=== PATIENT | female | born 1945 | race Caucasian/White ===

== ENCOUNTER 2021-11-06 09:06 | Outpatient (CLI) | payer MEDICARE | END 2021-11-06 09:07 | disposition home or self-care (01) | LOC: BICRAD 09:06 | PROVIDERS: ATTEND Specialist | DX: J90 Pleural effusion, not elsewhere classified (principal); D64.9 Anemia, unspecified | CPT/HCPCS: 36415; 71046; 85025 ==

== ENCOUNTER 2021-12-25 11:00 | Outpatient (CLI) | payer MEDICARE | END 2021-12-25 11:01 | disposition home or self-care (01) | LOC: RAD 11:00 | PROVIDERS: ATTEND Internal Medicine | DX: J90 Pleural effusion, not elsewhere classified (principal); J98.11 Atelectasis | CPT/HCPCS: 71046 ==

== ENCOUNTER 2022-01-23 10:45 | Inpatient (IN) | payer MEDICARE ==
[2022-01-23 14:03] VITALS: BMI 22.1
[2022-01-28] MEDS ORDERED: Ketorolac Tromethamine 30 MG/ML VIAL ONE ×2 (08:38→15:30)
[2022-01-28] MEDS ORDERED: Acetaminophen 500 MG TAB ONE (08:38)
[2022-01-28] MEDS ORDERED: Fentanyl 100 MCG/2 ML VIAL ONE ×4 (09:21→15:21)
[2022-01-28] MEDS ORDERED: Midazolam HCl 2 mg/2 ml Vial ONE (09:21)
[2022-01-28] MEDS ORDERED: fentaNYL Citrate/PF 100 MCG/2 ML SYRINGE ONE (09:25)
[2022-01-28] MEDS ORDERED: SUGAMMADEX SODIUM 200 MG/2 ML VIAL ONE (09:25)
[2022-01-28] MEDS ORDERED: cefOXitin 2 GM VIAL ONE ×2 (09:55→12:11)
[2022-01-28] MEDS ORDERED: Sodium Chloride 0.9% 100 ML ONE (09:55)
[2022-01-28] MEDS ORDERED: Ondansetron PF 4 MG/2 ML Vial ONE (10:08)
[2022-01-28] MEDS ORDERED: Glycopyrrolate 0.2 MG/ML 5 ML SYRINGE ONE (10:08)
[2022-01-28] MEDS ORDERED: Bupivacaine HCl 0.5%/Epinephrine 1:200,000/PF 30 ml Vial ONE (10:08)
[2022-01-28] MEDS ORDERED: Lidocaine 1% PF 5 ML VIAL ONE (10:08)
[2022-01-28] MEDS ORDERED: Dexamethasone 20 MG/5 ML VIAL ONE (10:08)
[2022-01-28] MEDS ORDERED: Rocuronium Bromide 10 MG/ML (10ML VIAL) ONE (10:08)
[2022-01-28] MEDS ORDERED: ePHEDrine 50 MG/ML VIAL ONE (10:08)
[2022-01-28] MEDS ORDERED: PROPOFOL 200 MG/20 ML VIAL ONE (10:08)
[2022-01-28] MEDS ORDERED: D5 1/2 NS w/20 mEq KCL 1,000 ML ONE (15:29)
[2022-01-28] MEDS ORDERED: hydrALAZINE 20 MG/ML VIAL SLOW IVP PRN (16:27)
[2022-01-28] MEDS ORDERED: Morphine 4 MG/ML VIAL SLOW IVP PRN (16:27)
[2022-01-28] MEDS: D5 1/2 NS w/20 mEq KCL 1,000 ML IV SCH ×2 (16:47→23:49)
[2022-01-28] MEDS: HYDROcodone/Acetaminophen 7.5/325 mg Tablet PO PRN ×2 (17:46→23:48)
[2022-01-28] MEDS: Atorvastatin Calcium 10 MG TAB PO SCH (20:35)
[2022-01-28] MEDS: Famotidine 20 MG TAB PO SCH (20:35)
[2022-01-28] MEDS: Ketorolac Tromethamine 30 MG/ML VIAL IVP SCH (20:35)
[2022-01-28] MEDS: Ondansetron PF 4 MG/2 ML Vial IVP PRN (23:47)
[2022-01-29] MEDS: Famotidine/PF 20 mg/2ml Vial SLOW IVP SCH ×3 (01:08→21:35)
[2022-01-29] MEDS: Ketorolac Tromethamine 30 MG/ML VIAL IVP SCH ×4 (03:46→21:35)
[2022-01-29] MEDS: D5 1/2 NS w/20 mEq KCL 1,000 ML IV SCH (06:41)
[2022-01-29 07:34] LABS: #Eosinphils 0.1 thou/uL (0.0-0.7); #Lymphocytes 1.9 thou/uL (1.20-3.40); #Neutrophils 10.5 thou/uL (1.40-6.50); %Basophils 0.4 % (0.0-1.0); %Eosinophils 0.4 % (0.0-10.0); %Lymphocytes 13.8 % (21.0-51.0); %Monocytes 7.5 % (0.0-10.0); Hemoglobin 10.9 g/dL (12.0-16.0); Mean Corpuscular HGB CONC 30.7 g/dL (32.0-36.0); Mean Corpuscular Hemoglobin 28.3 pg (27.0-31.0); Mean Corpuscular Volume 92.2 fL (78.0-98.0); Mean Platelet Volume 8.7 fL (7.4-10.4); Platelet Count 215 thou/uL (130-400); Red Blood Cell (RBC) Count 3.85 mill/uL (4.20-5.40); White Blood Cell (WBC) Count 13.5 thou/uL (4.8-10.8)
[2022-01-29 07:48] LABS: Anion Gap 9 mmol/L (10-20); BUN (Urea Nitrogen) 8 mg/dL (9.8-20.1); Calc. Creatinine Clearance 61 mL/min (70-130); Calcium 7.7 mg/dL (7.8-10.44); Carbon Dioxide 20 mmol/L (23-31); Chloride 106 mmol/L (98-107); Glucose 172 mg/dL (83-110); Potassium 4.3 mmol/L (3.5-5.1); Sodium 131 mmol/L (136-145)
[2022-01-29] MEDS: Enoxaparin Sodium 40 MG/0.4 ML SYRINGE SC SCH (08:57)
[2022-01-29] MEDS: Famotidine 20 MG TAB PO SCH ×2 (08:57→21:29)
[2022-01-29] MEDS: D5 0.9% NS w/ 20 mEq KCl 1,000 ML IV SCH ×2 (13:07→21:34)
[2022-01-29] MEDS: Morphine 2 MG/ML VIAL SLOW IVP PRN (15:57)
[2022-01-29] MEDS ORDERED: Lactated Ringer's 1,000 ML IV SCH (18:15)
[2022-01-29] MEDS: Atorvastatin Calcium 10 MG TAB PO SCH (21:34)
[2022-01-30] MEDS: Ketorolac Tromethamine 30 MG/ML VIAL IVP SCH ×4 (02:33→21:02)
[2022-01-30] MEDS: D5 0.9% NS w/ 20 mEq KCl 1,000 ML IV SCH (02:38)
[2022-01-30 08:09] LABS: Anion Gap 10 mmol/L (10-20); BUN (Urea Nitrogen) 4 mg/dL (9.8-20.1); Calc. Creatinine Clearance 75 mL/min (70-130); Calcium 7.3 mg/dL (7.8-10.44); Carbon Dioxide 16 mmol/L (23-31); Chloride 115 mmol/L (98-107); Glucose 102 mg/dL (83-110); Potassium 5.3 mmol/L (3.5-5.1); Sodium 136 mmol/L (136-145)
[2022-01-30 08:19] LABS: #Eosinphils 0.5 thou/uL (0.0-0.7); #Lymphocytes 1.5 thou/uL (1.20-3.40); #Monocytes 0.6 thou/uL (0.11-0.59); #Neutrophils 8.3 thou/uL (1.40-6.50); %Basophils 0.3 % (0.0-1.0); %Eosinophils 4.7 % (0.0-10.0); %Lymphocytes 13.5 % (21.0-51.0); %Monocytes 5.9 % (0.0-10.0); %Neutrophils 75.6 % (42.0-75.0); Mean Corpuscular HGB CONC 31.2 g/dL (32.0-36.0); Mean Corpuscular Hemoglobin 28.8 pg (27.0-31.0); Mean Corpuscular Volume 92.3 fL (78.0-98.0); Mean Platelet Volume 8.8 fL (7.4-10.4); Platelet Count 171 thou/uL (130-400); Red Blood Cell (RBC) Count 3.47 mill/uL (4.20-5.40); White Blood Cell (WBC) Count 10.9 thou/uL (4.8-10.8)
[2022-01-30] MEDS: Enoxaparin Sodium 40 MG/0.4 ML SYRINGE SC SCH (08:57)
[2022-01-30] MEDS: Famotidine 20 MG TAB PO SCH ×2 (08:58→21:26)
[2022-01-30] MEDS: Famotidine/PF 20 mg/2ml Vial SLOW IVP SCH ×2 (08:58→21:02)
[2022-01-30] MEDS: Dextrose 5%-Lactated Ringers 1,000 ML IV SCH ×2 (09:51→18:30)
[2022-01-30] MEDS: Ondansetron PF 4 MG/2 ML Vial IVP PRN ×2 (15:45→21:03)
[2022-01-30] MEDS: Morphine 2 MG/ML VIAL SLOW IVP PRN (18:53)
[2022-01-30] MEDS: Atorvastatin Calcium 10 MG TAB PO SCH (21:02)
[2022-01-31] MEDS: Dextrose 5%-Lactated Ringers 1,000 ML IV SCH ×3 (03:07→15:53)
[2022-01-31] MEDS: Ketorolac Tromethamine 30 MG/ML VIAL IVP SCH ×4 (03:08→20:54)
[2022-01-31 05:46] LABS: Anion Gap 9 mmol/L (10-20); BUN (Urea Nitrogen) Less than 4 mg/dL (9.8-20.1); Calc. Creatinine Clearance 85 mL/min (70-130); Calcium 7.7 mg/dL (7.8-10.44); Carbon Dioxide 20 mmol/L (23-31); Chloride 111 mmol/L (98-107); Glucose 122 mg/dL (83-110); Potassium 3.4 mmol/L (3.5-5.1); Sodium 137 mmol/L (136-145)
[2022-01-31 05:53] LABS: #Eosinphils 0.5 thou/uL (0.0-0.7); #Lymphocytes 1.5 thou/uL (1.20-3.40); #Monocytes 0.6 thou/uL (0.11-0.59); #Neutrophils 7.1 thou/uL (1.40-6.50); %Eosinophils 5.4 % (0.0-10.0); %Lymphocytes 15.6 % (21.0-51.0); %Monocytes 5.9 % (0.0-10.0); Hemoglobin 8.4 g/dL (12.0-16.0); Mean Corpuscular HGB CONC 31.4 g/dL (32.0-36.0); Mean Corpuscular Hemoglobin 28.6 pg (27.0-31.0); Mean Corpuscular Volume 91.1 fL (78.0-98.0); Mean Platelet Volume 9.2 fL (7.4-10.4); Platelet Count 171 thou/uL (130-400); RBC Distribution Width 17.2 % (11.5-14.5); Red Blood Cell (RBC) Count 2.94 mill/uL (4.20-5.40); White Blood Cell (WBC) Count 9.8 thou/uL (4.8-10.8)
[2022-01-31] MEDS: Ondansetron PF 4 MG/2 ML Vial IVP PRN ×2 (06:27→18:57)
[2022-01-31] MEDS: Famotidine 20 MG TAB PO SCH ×2 (09:55→20:54)
[2022-01-31] MEDS: Enoxaparin Sodium 40 MG/0.4 ML SYRINGE SC SCH (09:55)
[2022-01-31] MEDS: Famotidine/PF 20 mg/2ml Vial SLOW IVP SCH ×2 (09:56→20:55)
[2022-01-31] MEDS: Promethazine HCl 25 MG/ML VIAL IM PRN (10:15)
[2022-01-31] MEDS: Morphine 2 MG/ML VIAL SLOW IVP PRN (19:02)
[2022-01-31] MEDS: Atorvastatin Calcium 10 MG TAB PO SCH (20:54)
[2022-02-01] MEDS: Dextrose 5%-Lactated Ringers 1,000 ML IV SCH ×3 (02:00→11:43)
[2022-02-01] MEDS: Ketorolac Tromethamine 30 MG/ML VIAL IVP SCH ×4 (02:57→20:02)
[2022-02-01 08:39] LABS: #Eosinphils 0.7 thou/uL (0.0-0.7); #Lymphocytes 1.6 thou/uL (1.20-3.40); #Monocytes 0.6 thou/uL (0.11-0.59); #Neutrophils 8.2 thou/uL (1.40-6.50); %Basophils 0.2 % (0.0-1.0); %Eosinophils 6.4 % (0.0-10.0); %Lymphocytes 14.5 % (21.0-51.0); %Neutrophils 73.9 % (42.0-75.0); Hemoglobin 10.7 g/dL (12.0-16.0); Mean Corpuscular HGB CONC 30.8 g/dL (32.0-36.0); Mean Corpuscular Hemoglobin 28.4 pg (27.0-31.0); Mean Corpuscular Volume 92.2 fL (78.0-98.0); Mean Platelet Volume 8.5 fL (7.4-10.4); Platelet Count 216 thou/uL (130-400); RBC Distribution Width 16.9 % (11.5-14.5); Red Blood Cell (RBC) Count 3.76 mill/uL (4.20-5.40); White Blood Cell (WBC) Count 11.1 thou/uL (4.8-10.8)
[2022-02-01 08:59] LABS: Anion Gap 12 mmol/L (10-20); BUN (Urea Nitrogen) 4 mg/dL (9.8-20.1); Calc. Creatinine Clearance 80 mL/min (70-130); Calcium 8.4 mg/dL (7.8-10.44); Carbon Dioxide 20 mmol/L (23-31); Chloride 111 mmol/L (98-107); Glucose 105 mg/dL (83-110); Potassium 3.2 mmol/L (3.5-5.1); Sodium 140 mmol/L (136-145)
[2022-02-01] MEDS ORDERED: Piperacillin/Tazobactam 3.375 GM in Sodium Chloride 0.9% 100 ML IVPB SCH ×2 (09:00→12:00)
[2022-02-01] MEDS: Famotidine 20 MG TAB PO SCH ×2 (09:10→20:02)
[2022-02-01] MEDS: Famotidine/PF 20 mg/2ml Vial SLOW IVP SCH ×2 (09:11→20:02)
[2022-02-01] MEDS: Enoxaparin Sodium 30 MG/0.3 ML SYRINGE SC SCH (09:11)
[2022-02-01] MEDS: Piperacillin/Tazobactam 3.375 GM in Sodium Chloride 0.9% 100 ML IVPB SCH ×2 (14:17→22:23)
[2022-02-01] MEDS ORDERED: Morphine 4 MG/ML VIAL SLOW IVP PRN (16:15)
[2022-02-01] MEDS: Ondansetron PF 4 MG/2 ML Vial IVP PRN ×2 (16:51→22:26)
[2022-02-01] MEDS: Atorvastatin Calcium 10 MG TAB PO SCH (20:03)
[2022-02-01] MEDS: Promethazine HCl 25 MG/ML VIAL IM PRN (20:03)
[2022-02-02] MEDS: Ketorolac Tromethamine 30 MG/ML VIAL IVP SCH ×4 (03:00→20:35)
[2022-02-02] MEDS: Piperacillin/Tazobactam 3.375 GM in Sodium Chloride 0.9% 100 ML IVPB SCH ×3 (05:35→22:59)
[2022-02-02 06:15] LABS: #Eosinphils 0.6 thou/uL (0.0-0.7); #Lymphocytes 1.7 thou/uL (1.20-3.40); #Monocytes 0.7 thou/uL (0.11-0.59); #Neutrophils 5.3 thou/uL (1.40-6.50); %Basophils 0.5 % (0.0-1.0); %Eosinophils 7.8 % (0.0-10.0); %Lymphocytes 19.9 % (21.0-51.0); %Monocytes 8.2 % (0.0-10.0); %Neutrophils 63.6 % (42.0-75.0); Hemoglobin 8.5 g/dL (12.0-16.0); Mean Corpuscular HGB CONC 30.9 g/dL (32.0-36.0); Mean Corpuscular Hemoglobin 28.2 pg (27.0-31.0); Mean Corpuscular Volume 91.1 fL (78.0-98.0); Mean Platelet Volume 8.2 fL (7.4-10.4); Platelet Count 208 thou/uL (130-400); RBC Distribution Width 16.7 % (11.5-14.5); Red Blood Cell (RBC) Count 3.01 mill/uL (4.20-5.40); White Blood Cell (WBC) Count 8.3 thou/uL (4.8-10.8)
[2022-02-02 06:36] LABS: Anion Gap 10 mmol/L (10-20); BUN (Urea Nitrogen) Less than 4 mg/dL (9.8-20.1); Calc. Creatinine Clearance 78 mL/min (70-130); Calcium 7.7 mg/dL (7.8-10.44); Carbon Dioxide 23 mmol/L (23-31); Chloride 109 mmol/L (98-107); Glucose 103 mg/dL (83-110); Sodium 139 mmol/L (136-145)
[2022-02-02] MEDS: Promethazine HCl 25 MG/ML VIAL IM PRN ×2 (08:04→20:33)
[2022-02-02] MEDS: Famotidine/PF 20 mg/2ml Vial SLOW IVP SCH ×2 (10:15→20:35)
[2022-02-02] MEDS: Enoxaparin Sodium 30 MG/0.3 ML SYRINGE SC SCH (10:16)
[2022-02-02] MEDS: Famotidine 20 MG TAB PO SCH ×2 (10:21→20:48)
[2022-02-02] MEDS: Potassium Chloride 20 MEQ in Premix Bag 1 BAG IVPB SCH ×2 (11:07→12:29)
[2022-02-02] MEDS: Ondansetron PF 4 MG/2 ML Vial IVP PRN (18:45)
[2022-02-02] MEDS: Atorvastatin Calcium 10 MG TAB PO SCH (23:02)
[2022-02-03] MEDS: Ondansetron PF 4 MG/2 ML Vial IVP PRN ×3 (01:02→22:07)
[2022-02-03] MEDS: Piperacillin/Tazobactam 3.375 GM in Sodium Chloride 0.9% 100 ML IVPB SCH ×3 (05:14→22:08)
[2022-02-03 08:36] LABS: #Basophils 0.1 thou/uL (0.0-0.2); #Eosinphils 0.7 thou/uL (0.0-0.7); #Lymphocytes 2.1 thou/uL (1.20-3.40); #Monocytes 0.7 thou/uL (0.11-0.59); #Neutrophils 5.7 thou/uL (1.40-6.50); %Basophils 0.5 % (0.0-1.0); %Eosinophils 7.5 % (0.0-10.0); %Lymphocytes 22.5 % (21.0-51.0); %Monocytes 7.8 % (0.0-10.0); %Neutrophils 61.6 % (42.0-75.0); Hemoglobin 9.5 g/dL (12.0-16.0); Mean Corpuscular HGB CONC 31.8 g/dL (32.0-36.0); Mean Corpuscular Hemoglobin 28.9 pg (27.0-31.0); Mean Corpuscular Volume 90.9 fL (78.0-98.0); Mean Platelet Volume 8.1 fL (7.4-10.4); Platelet Count 244 thou/uL (130-400); RBC Distribution Width 16.4 % (11.5-14.5); Red Blood Cell (RBC) Count 3.27 mill/uL (4.20-5.40); White Blood Cell (WBC) Count 9.3 thou/uL (4.8-10.8)
[2022-02-03 08:50] LABS: Anion Gap 13 mmol/L (10-20); BUN (Urea Nitrogen) 4 mg/dL (9.8-20.1); Calc. Creatinine Clearance 83 mL/min (70-130); Calcium 8.1 mg/dL (7.8-10.44); Carbon Dioxide 20 mmol/L (23-31); Chloride 106 mmol/L (98-107); Glucose 95 mg/dL (83-110); Potassium 3.4 mmol/L (3.5-5.1); Sodium 136 mmol/L (136-145)
[2022-02-03] MEDS: Enoxaparin Sodium 30 MG/0.3 ML SYRINGE SC SCH (09:03)
[2022-02-03] MEDS: Famotidine/PF 20 mg/2ml Vial SLOW IVP SCH ×2 (09:04→21:03)
[2022-02-03] MEDS: Famotidine 20 MG TAB PO SCH ×2 (09:04→21:02)
[2022-02-03] MEDS: Promethazine HCl 25 MG/ML VIAL IM PRN (13:33)
[2022-02-03] MEDS: Atorvastatin Calcium 10 MG TAB PO SCH (21:02)
[2022-02-04] MEDS: Promethazine HCl 25 MG/ML VIAL IM PRN ×3 (02:17→22:33)
[2022-02-04] MEDS: Piperacillin/Tazobactam 3.375 GM in Sodium Chloride 0.9% 100 ML IVPB SCH (06:35)
[2022-02-04] MEDS: Famotidine 20 MG TAB PO SCH ×2 (08:07→21:04)
[2022-02-04] MEDS: Famotidine/PF 20 mg/2ml Vial SLOW IVP SCH (09:18)
[2022-02-04] MEDS: Enoxaparin Sodium 30 MG/0.3 ML SYRINGE SC SCH (10:41)
[2022-02-04] MEDS: Ondansetron PF 4 MG/2 ML Vial IVP PRN ×2 (12:15→16:19)
[2022-02-04] MEDS: Ciprofloxacin 500 MG TAB PO SCH (21:04)
[2022-02-04] MEDS: Atorvastatin Calcium 10 MG TAB PO SCH (21:04)
[2022-02-05] MEDS: Ciprofloxacin 500 MG TAB PO SCH ×2 (05:19→20:36)
[2022-02-05] MEDS: Famotidine 20 MG TAB PO SCH ×2 (07:43→20:36)
[2022-02-05] MEDS: HYDROcodone/Acetaminophen 7.5/325 mg Tablet PO PRN (09:51)
[2022-02-05] MEDS: Ondansetron PF 4 MG/2 ML Vial IVP PRN (09:54)
[2022-02-05] MEDS ORDERED: Ondansetron ODT 4 MG TAB PO PRN (19:15)
[2022-02-05] MEDS: Atorvastatin Calcium 10 MG TAB PO SCH (20:36)
[2022-02-05] MEDS: Promethazine 25 MG TAB PO PRN (22:15)
[2022-02-06] MEDS: Ciprofloxacin 500 MG TAB PO SCH ×2 (05:14→20:33)
[2022-02-06 08:22] LABS: #Basophils 0.1 thou/uL (0.0-0.2); #Eosinphils 0.5 thou/uL (0.0-0.7); #Lymphocytes 1.9 thou/uL (1.20-3.40); #Monocytes 0.8 thou/uL (0.11-0.59); #Neutrophils 5.6 thou/uL (1.40-6.50); %Basophils 0.6 % (0.0-1.0); %Eosinophils 5.9 % (0.0-10.0); %Lymphocytes 21.3 % (21.0-51.0); %Monocytes 9.1 % (0.0-10.0); %Neutrophils 63.1 % (42.0-75.0); Hemoglobin 9.7 g/dL (12.0-16.0); Mean Corpuscular HGB CONC 30.7 g/dL (32.0-36.0); Mean Corpuscular Hemoglobin 28.1 pg (27.0-31.0); Mean Corpuscular Volume 91.3 fL (78.0-98.0); Mean Platelet Volume 7.4 fL (7.4-10.4); Platelet Count 375 thou/uL (130-400); RBC Distribution Width 16.3 % (11.5-14.5); Red Blood Cell (RBC) Count 3.46 mill/uL (4.20-5.40); White Blood Cell (WBC) Count 8.9 thou/uL (4.8-10.8)
[2022-02-06 08:40] LABS: Anion Gap 13 mmol/L (10-20); BUN (Urea Nitrogen) 5 mg/dL (9.8-20.1); Calc. Creatinine Clearance 33 mL/min (70-130); Calcium 8.3 mg/dL (7.8-10.44); Carbon Dioxide 22 mmol/L (23-31); Chloride 106 mmol/L (98-107); Glucose 110 mg/dL (83-110); Potassium 3.2 mmol/L (3.5-5.1); Sodium 138 mmol/L (136-145)
[2022-02-06] MEDS: Famotidine 20 MG TAB PO SCH (09:00)
[2022-02-06] MEDS: Atorvastatin Calcium 10 MG TAB PO SCH (20:33)
[2022-02-06] MEDS: Promethazine 25 MG TAB PO PRN (23:39)
[2022-02-07] MEDS: Ciprofloxacin 500 MG TAB PO SCH ×2 (05:10→20:44)
[2022-02-07] MEDS: Ibuprofen 200 MG TAB PO PRN ×2 (05:12→21:46)
[2022-02-07 06:33] LABS: #Eosinphils 0.5 thou/uL (0.0-0.7); #Lymphocytes 1.4 thou/uL (1.20-3.40); #Monocytes 0.7 thou/uL (0.11-0.59); #Neutrophils 5.3 thou/uL (1.40-6.50); %Basophils 0.5 % (0.0-1.0); %Eosinophils 5.8 % (0.0-10.0); %Lymphocytes 17.4 % (21.0-51.0); %Monocytes 9.3 % (0.0-10.0); Hemoglobin 9.1 g/dL (12.0-16.0); Mean Corpuscular HGB CONC 31.9 g/dL (32.0-36.0); Mean Corpuscular Hemoglobin 28.8 pg (27.0-31.0); Mean Corpuscular Volume 90.3 fL (78.0-98.0); Mean Platelet Volume 7.5 fL (7.4-10.4); Platelet Count 376 thou/uL (130-400); Red Blood Cell (RBC) Count 3.17 mill/uL (4.20-5.40); White Blood Cell (WBC) Count 7.9 thou/uL (4.8-10.8)
[2022-02-07 07:33] LABS: Anion Gap 11 mmol/L (10-20); BUN (Urea Nitrogen) 6 mg/dL (9.8-20.1); Calc. Creatinine Clearance 28 mL/min (70-130); Calcium 7.8 mg/dL (7.8-10.44); Carbon Dioxide 25 mmol/L (23-31); Chloride 106 mmol/L (98-107); Glucose 98 mg/dL (83-110); Sodium 139 mmol/L (136-145)
[2022-02-07 07:39] LABS: Potassium 2.9 mmol/L (3.5-5.1)
[2022-02-07] MEDS: Famotidine 20 MG TAB PO SCH (08:42)
[2022-02-07] MEDS: HYDROcodone/Acetaminophen 7.5/325 mg Tablet PO PRN (08:43)
[2022-02-07] MEDS ORDERED: Potassium Chloride 20 MEQ TAB PO SCH (08:45)
[2022-02-07] MEDS: Potassium Chloride 20 MEQ TAB PO SCH ×2 (10:38→15:06)
[2022-02-07 16:56] LABS: Magnesium 1.5 mg/dL (1.6-2.6)
[2022-02-07] MEDS: Atorvastatin Calcium 10 MG TAB PO SCH (20:44)
[2022-02-07] MEDS ORDERED: Magnesium Sulfate 3 GM in Sodium Chloride 0.9% 100 ML IVPB SCH (21:30)
[2022-02-07] MEDS: Potassium Chloride 20 MEQ in Premix Bag 1 BAG IVPB SCH (23:36)
[2022-02-08] MEDS ORDERED: Potassium Chloride 20 MEQ in Premix Bag 1 BAG IVPB SCH (00:15)
[2022-02-08] MEDS: Potassium Chloride 20 MEQ in Premix Bag 1 BAG IVPB SCH (00:33)
[2022-02-08 06:15] LABS: Anion Gap 10 mmol/L (10-20); BUN (Urea Nitrogen) 9 mg/dL (9.8-20.1); Calc. Creatinine Clearance 25 mL/min (70-130); Calcium 7.7 mg/dL (7.8-10.44); Carbon Dioxide 24 mmol/L (23-31); Chloride 104 mmol/L (98-107); Glucose 99 mg/dL (83-110); Magnesium 1.8 mg/dL (1.6-2.6); Phosphorus 4.4 mg/dL (2.3-4.7); Potassium 3.7 mmol/L (3.5-5.1); Sodium 134 mmol/L (136-145)
[2022-02-08] MEDS: Ciprofloxacin 500 MG TAB PO SCH (06:24)
[2022-02-08] MEDS ORDERED: Potassium Chloride 10 MEQ TAB PO SCH (08:00)
[2022-02-08] MEDS: Famotidine 20 MG TAB PO SCH (08:28)
[2022-02-08] MEDS: Ibuprofen 200 MG TAB PO PRN (12:07)
[2022-02-08] MEDS: Acetaminophen 325 MG TAB PO SCH ×2 (15:15→21:40)
[2022-02-08] MEDS ORDERED: Magnesium Chloride 64 MG TAB PO SCH (21:00)
[2022-02-08] MEDS: Potassium Chloride 10 MEQ TAB PO SCH (21:40)
[2022-02-08] MEDS: Atorvastatin Calcium 10 MG TAB PO SCH (21:40)
[2022-02-08] MEDS: Doxycycline 100 MG CAP PO SCH (21:41)
[2022-02-08] MEDS ORDERED: Magnesium Oxide 400 MG TAB PO SCH (22:00)
[2022-02-09] MEDS: Acetaminophen 325 MG TAB PO SCH ×4 (04:24→21:06)
[2022-02-09 06:21] LABS: Anion Gap 10 mmol/L (10-20); BUN (Urea Nitrogen) 10 mg/dL (9.8-20.1); Calc. Creatinine Clearance 24 mL/min (70-130); Calcium 8.1 mg/dL (7.8-10.44); Carbon Dioxide 24 mmol/L (23-31); Chloride 104 mmol/L (98-107); Glucose 100 mg/dL (83-110); Magnesium 1.8 mg/dL (1.6-2.6); Phosphorus 4.6 mg/dL (2.3-4.7); Potassium 3.7 mmol/L (3.5-5.1); Sodium 134 mmol/L (136-145)
[2022-02-09] MEDS: Potassium Chloride 10 MEQ TAB PO SCH ×2 (08:38→21:06)
[2022-02-09] MEDS: Doxycycline 100 MG CAP PO SCH ×2 (08:38→21:06)
[2022-02-09] MEDS: Atorvastatin Calcium 10 MG TAB PO SCH (21:06)
[2022-02-09 22:45] LABS: SARS-CoV-2 NAA Rapid Test Not Detected (NotDetected)
[2022-02-10] MEDS: Acetaminophen 325 MG TAB PO SCH ×4 (04:05→20:35)
[2022-02-10 06:09] LABS: #Basophils 0.1 thou/uL (0.0-0.2); #Eosinphils 0.8 thou/uL (0.0-0.7); #Lymphocytes 1.6 thou/uL (1.20-3.40); #Monocytes 0.8 thou/uL (0.11-0.59); #Neutrophils 4.4 thou/uL (1.40-6.50); %Eosinophils 10.4 % (0.0-10.0); %Lymphocytes 20.8 % (21.0-51.0); %Monocytes 10.8 % (0.0-10.0); %Neutrophils 57.1 % (42.0-75.0); Hemoglobin 8.9 g/dL (12.0-16.0); Mean Corpuscular HGB CONC 31.5 g/dL (32.0-36.0); Mean Corpuscular Hemoglobin 28.6 pg (27.0-31.0); Mean Corpuscular Volume 90.7 fL (78.0-98.0); Mean Platelet Volume 7.6 fL (7.4-10.4); Platelet Count 445 thou/uL (130-400); RBC Distribution Width 15.8 % (11.5-14.5); White Blood Cell (WBC) Count 7.6 thou/uL (4.8-10.8)
[2022-02-10 06:35] LABS: ALT (SGPT) Less than 7 U/L (8-55); AST (SGOT) 13 U/L (5-34); Albumin 2.9 g/dL (3.4-4.8); Alkaline Phosphatase 55 U/L (40-110); Anion Gap 11 mmol/L (10-20); BUN (Urea Nitrogen) 11 mg/dL (9.8-20.1); Bilirubin, Total Less than 0.2 mg/dL (0.2-1.2); Calc. Creatinine Clearance 24 mL/min (70-130); Calcium 8.6 mg/dL (7.8-10.44); Carbon Dioxide 22 mmol/L (23-31); Chloride 109 mmol/L (98-107); Globulin 2.8 g/dL (2.4-3.5); Glucose 94 mg/dL (83-110); Magnesium 1.9 mg/dL (1.6-2.6); Phosphorus 4.8 mg/dL (2.3-4.7); Potassium 4.1 mmol/L (3.5-5.1); Protein, Total 5.7 g/dL (5.8-8.1); Sodium 138 mmol/L (136-145)
[2022-02-10] MEDS: Doxycycline 100 MG CAP PO SCH ×2 (08:50→20:35)
[2022-02-10] MEDS: Potassium Chloride 10 MEQ TAB PO SCH ×2 (08:51→20:34)
[2022-02-10] MEDS ORDERED: Sodium Bicarbonate 100 MEQ in Dextrose 5% in Water 1,000 ML IV SCH (09:45)
[2022-02-10] MEDS ORDERED: Morphine 2 MG/ML VIAL SLOW IVP SCH (12:30)
[2022-02-10] MEDS: Atorvastatin Calcium 10 MG TAB PO SCH (20:34)
[2022-02-11] MEDS: Acetaminophen 325 MG TAB PO SCH ×4 (04:01→21:15)
[2022-02-11 08:48] LABS: Phosphorus 4.3 mg/dL (2.3-4.7)
[2022-02-11 08:50] LABS: Anion Gap 14 mmol/L (10-20); BUN (Urea Nitrogen) 21 mg/dL (9.8-20.1); Calc. Creatinine Clearance 24 mL/min (70-130); Calcium 9.1 mg/dL (7.8-10.44); Carbon Dioxide 22 mmol/L (23-31); Chloride 104 mmol/L (98-107); Glucose 104 mg/dL (83-110); Magnesium 1.8 mg/dL (1.6-2.6); Potassium 4.2 mmol/L (3.5-5.1); Sodium 136 mmol/L (136-145)
[2022-02-11] MEDS ORDERED: Famotidine 20 MG TAB PO SCH (09:00)
[2022-02-11] MEDS: Doxycycline 100 MG CAP PO SCH ×2 (09:05→21:14)
[2022-02-11] MEDS: Potassium Chloride 10 MEQ TAB PO SCH ×2 (09:05→21:14)
[2022-02-11] MEDS: Polyethylene Glycol 3350 17 GM Packet PO SCH (09:06)
[2022-02-11 11:09] LABS: Creatinine, Urine Less than 20.00 mg/dL (47-110); Protein, Urine Random Quant Less than 10 mg/dL (1-14); Sodium, Urine 45 mmol/L (Not Available)
[2022-02-11 11:23] LABS: Bacteria/HPF None Seen HPF (None Seen); Bilirubin Negative (Negative); Blood, Urine Negative (Negative); Clarity Clear (Clear); Glucose, Urine (Dipstick) Normal (Negative); Ketone, Urine Negative (Negative); Leukocyte Negative Leu/uL (Negative); Nitrite Negative (Negative); Protein, Urine (Dipstick) Negative (Neg-Trace); RBC/HPF 0-3 HPF (0-3); Specific Gravity, Urine 1.003 (1.002-1.036); Squamous Epithelial 0-3 HPF (0-3); Urobilinogen Normal mg/dL (Less than 2); WBC/HPF 0-3 HPF (0-3)
[2022-02-11] MEDS ORDERED: Sodium Bicarbonate 150 MEQ in Dextrose 5% in Water 850 ML IV SCH (17:23)
[2022-02-11] MEDS: Atorvastatin Calcium 10 MG TAB PO SCH (21:14)
[2022-02-12] MEDS: Acetaminophen 325 MG TAB PO SCH ×2 (02:07→09:09)
[2022-02-12 05:38] LABS: Hemoglobin 9.2 g/dL (12.0-16.0); Mean Corpuscular HGB CONC 31.4 g/dL (32.0-36.0); Mean Corpuscular Hemoglobin 28.6 pg (27.0-31.0); Mean Corpuscular Volume 91.1 fL (78.0-98.0); Mean Platelet Volume 7.1 fL (7.4-10.4); Platelet Count 471 thou/uL (130-400); White Blood Cell (WBC) Count 6.5 thou/uL (4.8-10.8)
[2022-02-12 06:02] LABS: Anion Gap 13 mmol/L (10-20); BUN (Urea Nitrogen) 19 mg/dL (9.8-20.1); Calc. Creatinine Clearance 24 mL/min (70-130); Carbon Dioxide 25 mmol/L (23-31); Chloride 106 mmol/L (98-107); Glucose 102 mg/dL (83-110); Iron 21 ug/dL (50-170); Iron Binding Capacity, Total 200 mcg/dL (265-497); Magnesium 1.8 mg/dL (1.6-2.6); Phosphorus 4.6 mg/dL (2.3-4.7); Potassium 4.2 mmol/L (3.5-5.1); Sodium 140 mmol/L (136-145)
[2022-02-12 06:20] LABS: Ferritin 441.37 ng/mL (10-291)
[2022-02-12 06:21] LABS: Vitamin D, 25 Hydroxy 40.4 ng/ml (> 30.0)
[2022-02-12] MEDS ORDERED: Iron Sucrose Complex 400 MG in Sodium Chloride 0.9% 200 ML IVPB SCH (06:45)
[2022-02-12] MEDS ORDERED: IRON IVPB SCH (08:00)
[2022-02-12] MEDS ORDERED: SODIUM FERRIC GLUCONATE IVPB SCH (08:00)
[2022-02-12] MEDS ORDERED: SODIUM CHLORIDE 0.9% IVPB SCH (08:00)
[2022-02-12] MEDS ORDERED: Famotidine 20 MG TAB PO SCH (09:00)
[2022-02-12] MEDS: Potassium Chloride 10 MEQ TAB PO SCH (09:09)
[2022-02-12] MEDS: Doxycycline 100 MG CAP PO SCH (09:09)
[2022-02-12] MEDS: Polyethylene Glycol 3350 17 GM Packet PO SCH (09:12)
[2022-02-12] MEDS ORDERED: Morphine 4 MG/ML VIAL ONE (10:49)
[2022-02-12] MEDS ORDERED: Morphine 2 MG/ML VIAL SLOW IVP PRN (11:00)
[2022-02-12] MEDS ORDERED: Sodium Bicarbonate 150 MEQ in Dextrose 5% in Water 850 ML IV SCH (11:44)
[2022-02-12 12:12] VITALS: BP 125/84; TEMP 98.8
== END 2022-02-12 16:45 | disposition home health service (06) | DRG 330 ==
LOC: SURG A 01-28 08:13
PROVIDERS: ADMIT Specialist; ATTEND Specialist
PROC: 0DBE0ZZ Excision of Large Intestine, Open Approach (ICD-10-PCS; principal; 2022-01-28)
PROC: 0DBP0ZZ Excision of Rectum, Open Approach (ICD-10-PCS; 2022-01-28)
PROC: 0UT50ZZ Resection of Right Fallopian Tube, Open Approach (ICD-10-PCS; 2022-01-28)
PROC: 0UT00ZZ Resection of Right Ovary, Open Approach (ICD-10-PCS; 2022-01-28)
PROC: 0DNW0ZZ Release Peritoneum, Open Approach (ICD-10-PCS; 2022-01-28)
PROC: 0DBU0ZX Excision of Omentum, Open Approach, Diagnostic (ICD-10-PCS; 2022-01-28)
PROC: 3E0T3BZ Introduction of Anesthetic Agent into Peripheral Nerves and Plexi, Percutaneous Approach (ICD-10-PCS; 2022-01-28)
PROC: 0DN80ZZ Release Small Intestine, Open Approach (ICD-10-PCS; 2022-01-28)
DX: Z43.3 Encounter for attention to colostomy (principal); Z20.822 Contact with and (suspected) exposure to COVID-19; K56.7 Ileus, unspecified; N17.9 Acute kidney failure, unspecified; N13.30 Unspecified hydronephrosis; E87.2 Acidosis; T81.41XA Infection following a procedure, superficial incisional surgical site, initial encounter; N99.4 Postprocedural pelvic peritoneal adhesions; N83.9 Noninflammatory disorder of ovary, fallopian tube and broad ligament, unspecified; R19.09 Other intra-abdominal and pelvic swelling, mass and lump; E78.5 Hyperlipidemia, unspecified; B95.62 Methicillin resistant Staphylococcus aureus infection as the cause of diseases classified elsewhere; B95.2 Enterococcus as the cause of diseases classified elsewhere; E86.1 Hypovolemia; Y83.8 Other surgical procedures as the cause of abnormal reaction of the patient, or of later complication, without mention of misadventure at the time of the procedure; T39.395A Adverse effect of other nonsteroidal anti-inflammatory drugs [NSAID], initial encounter; D50.9 Iron deficiency anemia, unspecified; E83.42 Hypomagnesemia; Z98.890 Other specified postprocedural states; Z85.3 Personal history of malignant neoplasm of breast; Z90.10 Acquired absence of unspecified breast and nipple; Z90.13 Acquired absence of bilateral breasts and nipples; Z90.89 Acquired absence of other organs; Z90.710 Acquired absence of both cervix and uterus; Z90.49 Acquired absence of other specified parts of digestive tract; Z80.3 Family history of malignant neoplasm of breast; Z80.1 Family history of malignant neoplasm of trachea, bronchus and lung; Z79.899 Other long term (current) drug therapy
CPT/HCPCS: 36415; 36416; 74018; 74176; 76770; 80048; 80053; 80069; 81001; 82306; 82570; 82728; 83540; 83550; 83735; 84100; 84156; 84300; 85025; 85027; 87070; 87077; 87186; 87205; 88304; 88305; A4649; C1776; C1889; J0694; J1100; J1650; J1885; J2250; J2270; J2405; J2543; J2550; J2704; J2916; J3010; J3475; J3480; J3490; J7070; J7120; Q0169; S0028; U0002

== ENCOUNTER 2022-01-24 09:32 | Outpatient (CLI) | payer MEDICARE ==
[2022-01-24 10:40] LABS: #Basophils 0.1 10x3/uL (0.0-0.2); #Eosinphils 0.2 10x3/uL (0.0-0.5); #Monocytes 0.5 10x3/uL (0.0-1.1); #Neutrophils 3.6 10x3/uL (1.5-8.4); %Basophils 0.7 % (0.0-2.0); %Eosinophils 3.4 % (0.0-6.0); %Lymphocytes 36.8 % (18.0-47.0); %Monocytes 6.6 % (0.0-10.0); %Neutrophils 52.4 % (40.0-75.0); Mean Corpuscular HGB CONC 31.5 g/dL (32.0-36.0); Mean Corpuscular Volume 85.5 fl (81.6-98.3); Mean Platelet Volume 10.5 fl (7.4-10.4); Platelet Count 296 10x3/uL (150-450); RBC Distribution Width 18.6 % (11.5-14.5); Red Blood Cell (RBC) Count 4.08 10x6/uL (3.90-5.03); White Blood Cell (WBC) Count 6.8 10x3/uL (3.5-10.5)
[2022-01-24 11:15] LABS: Anion Gap 13 mmol/L (10-20); BUN (Urea Nitrogen) 18 mg/dL (9.8-20.1); Calc. Creatinine Clearance 0 mL/min (70-130); Calcium 8.9 mg/dL (7.8-10.44); Carbon Dioxide 27 mmol/L (23-31); Chloride 103 mmol/L (98-107); Glucose 85 mg/dL (83-110); Potassium 4.8 mmol/L (3.5-5.1); Sodium 138 mmol/L (136-145)
[2022-01-24 16:01] LABS: SARS-CoV-2 PCR by NAA Not Detected (NotDetected)
== END 2022-01-24 09:33 | disposition home or self-care (01) ==
LOC: LABBT 09:32
PROVIDERS: ATTEND Specialist
DX: Z01.818 Encounter for other preprocedural examination (principal); K57.32 Diverticulitis of large intestine without perforation or abscess without bleeding; K56.609 Unspecified intestinal obstruction, unspecified as to partial versus complete obstruction; Z20.822 Contact with and (suspected) exposure to COVID-19
CPT/HCPCS: 80048; 85025; 93005; U0003; U0005; 93010